=== PATIENT | female | born 1990 | race Hispanic/Latino ===

== ENCOUNTER 2020-03-30 16:01 | Emergency (ER) | payer OTHER, SELFPAY ==
[2020-03-30] MEDS ORDERED: ONDANSETRON 4 MG (ODT) TAB ONE (16:39)
[2020-03-30] MEDS ORDERED: HYDROCODONE/APAP 10/325 TAB ONE (16:40)
--- NOTE | 2020-03-30 16:52 | RAD REPORT ---
EXAM DESCRIPTION: CT - Head Brain Wo Cont - 03/30/2020 4:40 pm CLINICAL HISTORY: HEADACHE COMPARISON: No comparisons TECHNIQUE: Axial 5 mm thick images of the head were obtained without IV contrast. All CT scans are performed using dose optimization technique as appropriate and may include automated exposure control or mA/KV adjustment according to patient size. FINDINGS: No intracranial hemorrhage, mass, edema or shift of mid-line structures. No acute infarcti on changes seen. No abnormal extra-axial fluid collections. Ventricles are normal. Mastoid air cells and visualized portions of the paranasal sinuses are clear. No acute bony findings. IMPRESSION: Negative non-contrast CT head examination.
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
[2020-03-30 18:57] VITALS: BP 119/76; TEMP 97.3; O2SAT 98
== END 2020-03-30 17:39 | disposition home or self-care (01) ==
LOC: ER 16:01
DX: R51.9 Headache, unspecified (principal); R11.2 Nausea with vomiting, unspecified; Y04.2XXA Assault by strike against or bumped into by another person, initial encounter; Y93.9 Activity, unspecified; Y92.89 Other specified places as the place of occurrence of the external cause
CPT/HCPCS: 70450; 99283